=== PATIENT | female | born 1950 | race Caucasian/White ===

== ENCOUNTER → 2016-06-11 | Outpatient (CLI) | payer OTHER ==
[~2016-06-11] VITALS: Ht 162.6 cm; Wt 88.9 kg
[~2016-06-11] MED LIST: ADVAIR 250/501 DISK IH; ALEVE220 M2 PO; ATARAX,VISTARIL25 MG PO; ATORVASTATIN CA10 MG PO; AZELASTINE137 MCG/0. BOTH NARES; B COMPLETE1 EACH PO; BACTROBAN OINTM22 GM TP; CHILD ASPIRIN81 M1 PO; CLOBETASOL PROP60 G2 TP; FENOFIBRATE160 M1 PO; FISH OIL 1,0001 EA10 PO; FLONASE16 G1 BOTH NARES; FLUNISOLIDE25 ML BOTH NARES; HYDROCHLOROTHIA25 MG PO; HYZAAR 100-11 TABLET PO; OMEPRAZOLE20 MG PO; PRAVASTATIN SOD40 MG PO; VENTOLIN HFA18 GM IH; WELLBUTRIN SR150 MG PO; ZANTAC150 MG PO; ZESTORETIC 20-1 EAC1 PO; ZYRTEC10 M2 PO
== END | disposition home or self-care (01) ==
LOC: AMB 11:57
PROC: 0DJD8ZZ Inspection of Lower Intestinal Tract, Via Natural or Artificial Opening Endoscopic (ICD-10-PCS; principal; 2016-06-11)
DX: Z09 Encounter for follow-up examination after completed treatment for conditions other than malignant neoplasm (principal); Z86.010 Personal history of colon polyps; K57.90 Diverticulosis of intestine, part unspecified, without perforation or abscess without bleeding; K64.8 Other hemorrhoids; I10 Essential (primary) hypertension; J45.909 Unspecified asthma, uncomplicated; K21.9 Gastro-esophageal reflux disease without esophagitis; E78.5 Hyperlipidemia, unspecified; R73.03 Prediabetes

== ENCOUNTER → 2017-01-21 | Outpatient (CLI) | payer OTHER ==
[~2017-01-21] VITALS: Ht 162.6 cm; Wt 88.9 kg
[~2017-01-21] MED LIST changes: +ASPIR 8181 M1 PO; -CHILD ASPIRIN81 M1 PO
== END | disposition home or self-care (01) ==
LOC: AMB 07:57
DX: K25.9 Gastric ulcer, unspecified as acute or chronic, without hemorrhage or perforation (principal); K44.9 Diaphragmatic hernia without obstruction or gangrene; K21.9 Gastro-esophageal reflux disease without esophagitis; I10 Essential (primary) hypertension; J45.909 Unspecified asthma, uncomplicated; Z87.891 Personal history of nicotine dependence
CPT/HCPCS: 88305; 88342 TC; 93005

== ENCOUNTER 2017-03-06 20:19 | Emergency (ER) | payer OTHER ==
[~2017-03-06] VITALS: Ht 160 cm; Wt 87.1 kg
[2017-03-06] MEDS ORDERED: NORCO 5/3251 TABLET PO (23:11)
[2017-03-06] MEDS ORDERED: MOTRIN600 MG PO (23:11)
[2017-03-06 23:24] VITALS: BP 177/79
== END 2017-03-06 23:25 | disposition home or self-care (01) ==
LOC: EME 20:19 → RME 20:19
PROC: 2W38X1Z Immobilization of Right Upper Extremity using Splint (ICD-10-PCS; principal; 2017-03-06)
DX: S62.346A Nondisplaced fracture of base of fifth metacarpal bone, right hand, initial encounter for closed fracture (principal); S39.012A Strain of muscle, fascia and tendon of lower back, initial encounter; S80.01XA Contusion of right knee, initial encounter; W18.30XA Fall on same level, unspecified, initial encounter; Y93.K1 Activity, walking an animal; M54.41 Lumbago with sciatica, right side; Z88.8 Allergy status to other drugs, medicaments and biological substances; Z87.891 Personal history of nicotine dependence
CPT/HCPCS: 72110; 73130; 73502; 73564; 99281; 99283; J3010

== ENCOUNTER 2017-10-20 14:45 | Emergency (ER) | payer OTHER ==
[~2017-10-20] VITALS: Ht 162.6 cm; Wt 82.9 kg
[~2017-10-20 14:45] MED LIST changes: +MOTRIN600 MG PO; +NORCO 5/3251 TABLET PO
[2017-10-20] MEDS ORDERED: LEVAQUIN500 MG PO (15:34)
[2017-10-20 16:13] VITALS: BP 150/82
== END 2017-10-20 16:14 | disposition home or self-care (01) ==
LOC: EME 14:45 → RME 14:45
PROC: 3E0234Z Introduction of Serum, Toxoid and Vaccine into Muscle, Percutaneous Approach (ICD-10-PCS; principal; 2017-10-20)
DX: S91.331A Puncture wound without foreign body, right foot, initial encounter (principal); L03.115 Cellulitis of right lower limb; W45.0XXA Nail entering through skin, initial encounter; Y93.H2 Activity, gardening and landscaping; I10 Essential (primary) hypertension; Z23 Encounter for immunization; Z88.0 Allergy status to penicillin; Z88.1 Allergy status to other antibiotic agents; Z88.8 Allergy status to other drugs, medicaments and biological substances; Z91.041 Radiographic dye allergy status; Z87.891 Personal history of nicotine dependence
CPT/HCPCS: 73630; 99281; 99284